=== PATIENT | female | born 1975 | race Caucasian/White ===

== ENCOUNTER 2017-05-01 12:52 | Day surgery (SDC) | payer OTHER ==
[2017-05-01] MEDS ORDERED: diphenhydrAMINE 25 MG CAP PO ONE (12:56)
[2017-05-01] MEDS ORDERED: BACITRACIN IRRIGATION/NS 50,000 UNITS/1,000 ML BTL IRR ONE (12:56)
[2017-05-01] MEDS ORDERED: DIAZEPAM 5 MG TAB PO ONE (12:56)
[2017-05-01] MEDS ORDERED: ceFAZolin 2 GM/SWFI 2 GM/20 ML SYR IVP ONE (12:56)
[2017-05-01] MEDS ORDERED: NS 1,000 ML IV ONE (12:56)
--- NOTE | 2017-05-01 13:16 | CPEKG ---
Heart Rate: 77 RR Interval: 779 P-R Interval: 172 QRSD Interval: 78 QT Interval: 388 QTC Interval: 440 P Mclean: 58 QRS Mclean: 53 T Wave Mclean: 25 EKG Severity - NORMAL ECG - EKG Impression: SINUS RHYTHM Electronically Signed By: Varsha Jacobson 01-May-2017 18:11:45
[2017-05-01 13:30] LABS: PLATELET COUNT 205 10^3/uL (150-400)
[2017-05-01 13:39] LABS: INR 0.95 (0.83-1.16); PROTIME(PATIENT) 12.9 SEC (12.0-15.0)
[2017-05-01] MEDS ORDERED: VANCOMYCIN HCL/NORMAL SALINE 250 ML IV ONE (14:00)
[2017-05-01] MEDS ORDERED: LIDOCAINE 1% 300 MG/30 ML SDV ONE (15:00)
[2017-05-01] MEDS ORDERED: BUPIVACAINE 0.5% 30 ML SDV ONE (15:00)
--- NOTE | 2017-05-01 15:04 | PDGENHP ---
History & Physical Chief Complaint: pacemaker at sarbjit History of Present Illness: pacemaker at sarbjit. 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 Cardiorespiratory Assessment: for generator change. patient also requests scar revision
[2017-05-01] MEDS ORDERED: MIDAZOLAM 2 MG/2 ML VIAL IVP ONE (15:07)
--- NOTE | 2017-05-01 15:07 | PDANEPAE ---
ANE History of Present Illness gen change ANE Past Medical History - Cardiovascular History Hx Hypertension: No Hx Arrhythmias: Yes Hx Chest Pain: No Hx Coronary Artery / Peripheral Vascular Disease: No Hx CHF / Valvular Disease: No Hx Palpitations: No - Pulmonary History Hx COPD: No Hx Asthma/Reactive Airway Disease: No Hx Recent Upper Respiratory Infection: No Hx Oxygen in Use at Home: No Hx Sleep Apnea: No - Neurologic History Hx Cerebrovascular Accident: No Hx Seizures: No - Endocrine History Hx Diabetes: No Hypothyroid: No Hyperthyroid: No - Renal History Hx Renal Disorders: No - Liver History Hx Hepatic Disorders: No - Neurological & Psychiatric Hx Hx Neurological and Psychiatric Disorders: No - Cancer History Hx Cancer: No ANE Review of Systems Review of systems is: negative Review of Systems: - Exercise capacity Exercise capacity: >=4 METS ANE Patient History - Allergies Allergies/Adverse Reactions: morphine Allergy (Verified 05/01/17 13:15) Vomiting niacin Allergy (Verified 05/01/17 13:15) severe flushing Penicillins Allergy (Verified 05/01/17 13:15) Anaphylaxis - Home Medications Home medications: home medication list seen and reviewed Home Medications: DULoxetine [Cymbalta 60 MG (*)] 60 mg PO DAILY 05/01/17 [Last Taken 04/30/17] Herbals/Supplements -Info Only 1 ea PO DAILY 05/01/17 [Last Taken Unknown] Ibuprofen [Motrin (*)] 400 - 1,000 mg PO DAILY 05/01/17 [Last Taken 04/30/17 1000mg] Multivitamins [Multivitamin (*)] 1 each PO DAILY 05/01/17 [Last Taken 04/30/17] traZODone [traZODone 150MG (*)] 300 mg PO HS 05/01/17 [Last Taken 04/30/17] - NPO status NPO Status: no food or drink >8 hours - Anes Hx Anes Hx: no prior problems - Smoking Hx Smoking Status: Never smoked - Alcohol Use Alcohol Use: Occasionally ANE Labs/Vital Signs - Labs Result Diagrams: 05/01/17 13:15 05/01/17 13:15 - Vital Signs Height: 152 cm Weight: 77.1 kg ANE Physical Exam - Airway Neck exam: FROM Mallampati Score: Class 2 Mouth exam: normal dental/mouth exam - Pulmonary Pulmonary: no respiratory distress - Cardiovascular Cardiovascular: regular rate and rhythym - ASA Status ASA Status: III ANE Anesthesia Plan Anesthesia Plan: MAC
[2017-05-01] MEDS ORDERED: MIDAZOLAM 2 MG/2 ML VIAL ONE (15:18)
[2017-05-01] MEDS ORDERED: PROPOFOL/EMULSION 500 MG/50 ML BOTTLE IV ONE (15:36)
[2017-05-01] MEDS ORDERED: LIDOCAINE 2% 100 MG/5 ML SYR ONE (15:36)
[2017-05-01] MEDS ORDERED: fentaNYL 100 MCG/2 ML INJ ONE (15:36)
--- NOTE | 2017-05-01 16:51 | EPPROC ---
Electrophysiology Procedure Note: PROCEDURE PERFORMED: 1. AV Pacemaker generator change 2. Scar revison INDICATION: Pacemaker generator at XIOMY Bradycardia PROCEDURE NOTE: Patient presented to the cardiac catheterization laboratory in a fasting, postabsorptive state. Dr. Luis Alberto Guzman administered sedation. The left infraclavicular area was prepped and draped in the usual sterile fashion. Lidocaine plus bupivacaine was used for local anesthesia. Using a combination of blunt and sharp dissection and electrocautery, the dissection was carried down to the prepectoral fascia and the existing pacemaker pocket was opened. Keloid scar was excised using a crescent shaped incision. The pacemaker generator was disconnected from the leads and the lead thresholds and impedance were checked. The pacemaker pocket was copiously irrigated with antibiotic solution. The pocket was again inspected for any bleeding. The leads were attached to the pacemaker securely. The pacemaker was inserted into the pocket and secured in place with a nonabsorbable suture. The pacemaker pocket was closed in 3 layers with absorbable monocryl sutures and loretta. Appropriate dressing was applied. The patient left the cardiac catheterization laboratory in stable condition. Serial Numbers: 1. Device Med[employer]onic Advisa MRI [id number] 2. Atrial Lead Medtronic 4076-45 [id number] 3. Ventricular Lead Medtronic 4076-52 [id number] V Stimulation Thresholds & Impedance Measurements: 1. Atrial Lead P 2.5 mV 0.4 V 0.5 ms 370 ohm 2. Ventricular Lead R 8.7 mV 0.7 V 0.5 ms 444 ohm Veto Pacing Parameters 1. Pacing mode DDD 2. Lower rate 60 ppm 3. Upper tracking rate 140 ppm 4. Upper sensor rate 140 ppm AV delay extended to 250/230 ms to decrease ventricular pacing further. Patient Problems: Problems Problem Status Onset Bradycardia Acute
[2017-05-01] MEDS ORDERED: IBUPROFEN 200 MG TAB PO PRN (16:52)
[2017-05-02] MEDS ORDERED: MULTIVITAMINS 1 EACH TAB PO SCH (09:00)
[2017-05-02] MEDS ORDERED: DULoxetine 60 MG CAP PO SCH (09:00)
== END 2017-05-01 18:16 | disposition home or self-care (01) ==
LOC: FCATH 12:52
PROVIDERS: ATTEND Internal Medicine Cardiovascular Disease
PROC: 0JPT0PZ Removal of Cardiac Rhythm Related Device from Trunk Subcutaneous Tissue and Fascia, Open Approach (ICD-10-PCS; principal; 2017-05-01)
DX: Z45.010 Encounter for checking and testing of cardiac pacemaker pulse generator [battery] (principal); I47.1 Supraventricular tachycardia
CPT/HCPCS: 88291-90; C1785; J0690; J2001; J2250; J2704; J3010; J3370